=== PATIENT | female | born 1965 | race Caucasian/White ===

== ENCOUNTER 2021-02-24 13:14 | Emergency (ER) | payer MEDICAID ==
[2021-02-24] MEDS ORDERED: HYDROmorphone 0.5 MG/0.5 ML Syringe IM ONE ×2 (13:35→14:24)
--- NOTE | 2021-02-24 13:39 | EDM.PDOC ---
ED HPI GENERAL MEDICAL PROBLEM - General Chief Complaint: Upper Extremity Injury/Pain Stated Complaint: FALL/R HAND INJURY Time Seen by Provider: 02/24/21 13:31 Source of Information: Reports: Patient, RN Notes Reviewed History Limitations: Reports: No Limitations - History of Present Illness INITIAL COMMENTS - FREE TEXT/NARRATIVE: Patient is a 55-year-old female who presents to the ER for a right wrist/hand injury. Patient notes she fell down some stairs last night, and had resultant pain in her right hand/wrist. She has been using an Nilo wrap to the area, but has not tried any sort of pain medication prior to coming to the ER. When the Nilo wrap is taken off, there is some bruising/swelling to the hand/finger area. She points to her wrist and proximal hand as the source of pain. She thinks she could have bumped her head, but she did not lose any consciousness, and did not have any laceration she was aware of this there was no bleeding. She did not have a bloody nose, she did not notice any sort of fluid coming from her ears as well. She is denying any blurred vision or double vision, or any sort of headaches or any other neurological deficits. Patient's hand is pink, warm, and she can feel all touch without difficulty. She is however having trouble moving her fingers much at all due to the pain. Right Wrist Pain Score (Numeric/FACES): 4 - Related Data Allergies Allergy/AdvReac Type Severity Reaction Status Date / Time No Known Allergies Allergy Verified 02/24/21 13:29 Home Meds: Home Meds Acetaminophen/HYDROcodone [[place] 325-5 MG] 1 tab PO Q6H PRN #15 tablet 02/24/21 [Rx] Past Medical History - Past Surgical History Musculoskeletal Surgical History: Reports: Other (See Below) Other Musculoskeletal Surgeries/Procedures:: leg surgery Social & Family History - Tobacco Use Tobacco Use Status *Q: Never Tobacco User Second Hand Smoke Exposure: No - Recreational Drug Use Recreational Drug Use: No Review of Systems - Review of Systems Review Of Systems: Comprehensive ROS is negative, except as noted in HPI. ED EXAM, GENERAL - Physical Exam Exam: See Below Exam Limited By: No Limitations General Appearance: Alert, WD/WN, No Apparent Distress Respiratory/Chest: No Respiratory Distress, Lungs Clear, Normal Breath Sounds, No Accessory Muscle Use, Chest Non-Tender Cardiovascular: Normal Peripheral Pulses, Regular Rate, Rhythm, No Edema Peripheral Pulses: 2+: Radial (L), Radial (R) Extremities: Normal Capillary Refill, Limited Range of Motion (of right wrist/hand d/t swelling/pain) Neurological: Alert, Oriented, Normal Cognition, No Motor/Sensory Deficits Psychiatric: Normal Affect, Normal Mood Skin Exam: Warm, Dry, Intact, No Rash, Ecchymosis (slight to posterior right hand, along with mild swelling into fingers.) ED TRAUMA EXTREMITY PROCEDURES - Splinting Right Upper Extremity Splint Site: right wrist Pre-Procedure NV Status: Normal Post-Procedure NV Status: Normal Splint Material: Fiberglass Splint Design: Gutter (ulnar gutter short arm) Applied & Form Fitted By: Provider, Nurse Provider Post-Splint Application NV Check: NV Status Normal, Good Position Complications: No Course - Vital Signs Last Recorded V/S: Last Vital Signs Temp 97.5 F 02/24/21 13:25 Pulse 95 02/24/21 13:25 Resp 16 02/24/21 13:25 BP 119/75 02/24/21 13:25 Pulse Ox 97 02/24/21 13:25 - Orders/Labs/Meds Orders: Active Orders 24 hr Category Date Time Status HYDROmorphone [Dilaudid] Med 02/24/21 14:24 Once 0.5 mg IM ONETIME ONE Meds: Medications Discontinued Medications Generic Name Dose Route Start Last Admin Trade Name Freq PRN Reason Stop Dose Admin Hydromorphone HCl 0.5 mg 02/24/21 13:35 02/24/21 13:56 Hydromorphone 0.5 Mg/0.5 Ml Syringe IM 02/24/21 13:36 0.5 mg ONETIME ONE Administration - Re-Assessments/Exams Free Text/Narrative Re-Assessment/Exam: 02/24/21 13:38 Patient presents to the ER for her right hand/wrist injury, we will go ahead and get x-rays of her wrist and hand, we will give her 0.5 mg Dilaudid for ongoing management. 02/24/21 14:06 X-rays of the patient's wrist do demonstrate an impacted fracture of the distal radius. There is very minimal angulation, and no displacement. We will go ahead and splint the patient's wrist, and have her follow-up with orthopedics this week for ongoing cast management. Departure - Departure Time of Disposition: 14:08 Disposition: Home, Self-Care 01 Condition: Good Clinical Impression: Distal radius fracture, right Qualifiers: Encounter type: initial encounter Fracture type: closed Fracture morphology: other fracture Qualified Code(s): S52.591A - Other fractures of lower end of right radius, initial encounter for closed fracture - Discharge Information *PRESCRIPTION DRUG MONITORING PROGRAM REVIEWED*: Yes *COPY OF PRESCRIPTION DRUG MONITORING REPORT IN PATIENT DANNY: No Prescriptions: Acetaminophen/HYDROcodone [[place] 325-5 MG] 1 tab PO Q6H PRN #15 tablet PRN Reason: Pain Instructions: Cast or Splint Care, Adult, [id number], Wrist Fracture Treated With Immobilization, [id number] Referrals: [facility] TECHNICIAN [Primary Care Provider] - Forms: ED Department Discharge, ED Return to Work/School Form Additional Instructions: You have been evaluated in the ED for your right wrist injury. Your x-ray demonstrated an impacted fracture of your right distal radius. You were splinted at this ER visit, to allow some time for the swelling to go down. Please keep the splint in place, until orthopedics can evaluate you Please use ice as tolerated to the affected area. You may elevate the affected area to provide further relief from swelling. You may take Tylenol 500 mg or ibuprofen 600mg q6 hrs for pain relief. Please do so until you have a tolerable level of pain with activity. Do not exceed 4000mg Tylenol, Do not exceed 3200mg ibuprofen in a 24 hour time period. You were given a prescription for a strong pain medication, hydrocodone/acetaminophen 5/325, please take 1 tab every 6 hours as needed for pain not relieved by Tylenol or ibuprofen alone. Please note this does contain Tylenol in it, so do not take more than 4000 mg in a 24-hour time span. These medications can be addictive, so please take as few as possible to achieve adequate pain control. These meds can also be quite constipating, recommend that you increase your oral fluid intake and take a stool softener like MiraLAX while taking these medications. Your prescription was electronically sent to [facility] pharmacy located near [facility], this pharmacy is only open from 12 to 4 PM on Sundays, you will need to go there during this timeframe to obtain this medication and take as prescribed. Please call Ortho for follow-up and further evaluation Dr. Salas is our orthopedic surgeon, his office number is [phone]. Please call and set up an appointment as soon as possible for further management. Please return to ED if your symptoms should change or worsen. Sepsis Event Note (ED) - Evaluation Sepsis Screening Result: No Definite Risk - Focused Exam Vital Signs: Vital Signs Temp Pulse Resp BP Pulse Ox 02/24/21 13:25 97.5 F 95 16 119/75 97 - My Orders Last 24 Hours: My Active Orders 02/24/21 14:24 HYDROmorphone [Dilaudid] 0.5 mg IM ONETIME ONE - Assessment/Plan Last 24 Hours: My Active Orders 02/24/21 14:24 HYDROmorphone [Dilaudid] 0.5 mg IM ONETIME ONE
--- NOTE | 2021-02-24 14:21 | CR ---
Right hand: 4 views of the right hand were obtained. Comparison: No prior hand exam is available. Diffuse soft tissue swelling is noted. Fracture is identified within the distal radius. Alignment is close to anatomic. Mild joint space narrowing is noted of the distal navicular bone. Fingers are held in flexion which slightly limits the exam. No additional fracture or other abnormality is appreciated. Impression: 1. Essentially nondisplaced distal right radial fracture. 2. Diffuse soft tissue swelling. Diagnostic code #3
== END 2021-02-24 15:24 | disposition home or self-care (01) ==
LOC: JD.ED 13:14
DX: S52.591A Other fractures of lower end of right radius, initial encounter for closed fracture (principal); W10.8XXA Fall (on) (from) other stairs and steps, initial encounter
CPT/HCPCS: 29125; 73130; 96372; 99283; J1170

== ENCOUNTER 2021-05-03 14:22 | Emergency (ER) | payer MEDICAID ==
[2021-05-03] MEDS ORDERED: Sodium Chloride 0.9% 10 ML Syringe FLUSH PRN (14:59)
[2021-05-03] MEDS ORDERED: Sodium Chloride 0.9% 1,000 ML IV ONE ×3 (15:00→17:30)
[2021-05-03] MEDS ORDERED: LORazepam 2 MG/ML SDV IVPUSH ONE (15:00)
[2021-05-03] MEDS ORDERED: Metoclopramide 10 MG/2 ML SDV IVPUSH ONE (15:00)
--- NOTE | 2021-05-03 15:08 | EDM.PDOCBH ---
ED HPI GENERAL MEDICAL PROBLEM - General Chief Complaint: Behavioral/Psych Stated Complaint: [facility] Time Seen by Provider: 05/03/21 14:27 Source of Information: Reports: Patient, Family (brother), RN Notes Reviewed History Limitations: Reports: Intoxication, Uncooperative (somewhat) - History of Present Illness INITIAL COMMENTS - FREE TEXT/NARRATIVE: Patient is a 55-year-old female who is brought in by the [place] ambulance service for her suicidal ideations. States that she has been in relationship with a gentleman in [place], and roughly 2 days ago, he told her that she should just kill herself. She notes that she is fairly dependent on him, would be homeless without him. She states that she was thinking about taking all of her pills, and ending her life. Patient is visibly intoxicated, and states that she is mentally unstable and needs help. She notes that she is not hearing voices or not seeing things that are not there. She feels like she is not worthy or good enough. Notes that family has issues with bipolar, and schizophrenia however she has only been diagnosed with depression. I was able to talk with the patient's son and she has been recently started on antidepression meds, and he was concerned because she has been drinking, with the combination of antidepression meds, and that she is never mentioned the thought of suicide to him in the past. Patient states she has been taking her medications as prescribed. Patient denies any other sick-like symptoms, fever/chills, cough/shortness of breath, nausea/vomiting/diarrhea. She has received her first dose of Covid vaccine as well. - Related Data Allergies Allergy/AdvReac Type Severity Reaction Status Date / Time No Known Allergies Allergy Verified 05/03/21 14:30 Home Meds: Home Meds Escitalopram [Lexapro] 10 mg PO DAILY 05/03/21 [History] Famotidine 20 mg PO DAILY 05/03/21 [History] LORazepam [Ativan] 0.5 mg PO BID PRN 05/03/21 [History] Levocetirizine Dihydrochloride [Allergy Relief] 5 mg PO DAILY 05/03/21 [History] Past Medical History Respiratory History: Reports: Asthma Gastrointestinal History: Reports: Other (See Below) Other Gastrointestinal History: ulcers [employer] History: Reports: Psychiatric History: Reports: Anxiety, Depression - Past Surgical History Musculoskeletal Surgical History: Reports: Other (See Below) Other Musculoskeletal Surgeries/Procedures:: leg surgery Social & Family History - Tobacco Use Tobacco Use Status *Q: Light Tobacco User Years of Tobacco use: 30 Packs/Tins Daily: 0.1 - Caffeine Use Caffeine Use: Reports: None - Alcohol Use Days Per Week of Alcohol Use: 5 Number of Drinks Per Day: 5 Total Drinks Per Week: 25 - Recreational Drug Use Recreational Drug Use: No ED ROS GENERAL - Review of Systems Review Of Systems: Comprehensive ROS is negative, except as noted in HPI. ED EXAM, BEHAVIORAL HEALTH - Physical Exam Exam: See Below Exam Limited By: No Limitations General Appearance: Alert, WD/WN, No Apparent Distress Respiratory/Chest: No Respiratory Distress, Lungs Clear, Normal Breath Sounds, No Accessory Muscle Use, Chest Non-Tender Cardiovascular: Normal Peripheral Pulses, Regular Rate, Rhythm, No Edema GI/Abdominal: Normal Bowel Sounds, Soft, Non-Tender, No Distention, No Mass Extremities: Normal Inspection, Normal Capillary Refill Neurological: Alert, Normal Mood/Affect, Normal Cognition, No Motor/Sensory Deficits Psychiatric: Depressed Mood, Tearful, Suicidal Plan (states that she would take all her pills), Suicidal Thoughts (wants to take all of her depression meds to end her life). No: Homicidal Thoughts, Visual Hallucinations Skin Exam: Warm, Dry, Intact, Normal color, No rash COURSE, BEHAVIORAL HEALTH COMP - Course Vital Signs: Last Vital Signs Temp 98.0 F 05/03/21 14:29 Pulse 60 05/03/21 14:29 Resp 20 05/03/21 14:29 BP 113/70 05/03/21 14:29 Pulse Ox 98 05/03/21 14:29 Orders, Labs, Meds: Active Orders 24 hr Category Date Time Status Peripheral IV Care [RC] . DIRECTED Care 05/03/21 14:59 Active Suicide Precautions [RC] ASDIRECTED Care 05/03/21 15:19 Active Sodium Chloride 0.9% [Normal Saline] 1,000 ml Med 05/03/21 16:26 Ordered IV ONETIME Sodium Chloride 0.9% [Saline Flush] Med 05/03/21 14:59 Active 10 ml FLUSH ASDIRECTED PRN Peripheral IV Insertion Adult [OM.PC] Routine Oth 05/03/21 14:59 Ordered Medication Orders Sodium Chloride (Normal Saline) 1,000 mls @ 999 mls/hr IV ONETIME ONE Stop: 05/03/21 17:26 Sodium Chloride (Sodium Chloride 0.9% 10 Ml Syringe) 10 ml FLUSH ASDIRECTED PRN PRN Reason: Keep Vein Open Last Admin: 05/03/21 15:18 Dose: 10 ml Documented by: EDITH Laboratory Tests 05/03/21 05/03/21 05/03/21 Range/Units 15:10 15:10 15:10 WBC 7.94 (3.98-10.04) K/mm3 RBC 4.73 (3.98-5.22) M/mm3 Hgb 15.1 (11.2-15.7) gm/dl Hct 45.7 H (34.1-44.9) % MCV 96.6 H (79.4-94.8) fl MCH 31.9 (25.6-32.2) pg MCHC 33.0 (32.2-35.5) g/dl RDW Std Deviation 46.7 H (36.4-46.3) fL Plt Count 341 (182-369) K/mm3 MPV 7.5 L (9.4-12.3) fl Neutrophils % (Manual) 67 H (40-60) % Band Neutrophils % 1 (0-10) % Lymphocytes % (Manual) 22 (20-40) % Atypical Lymphs % 2 % Monocytes % (Manual) 6 (2-10) % Eosinophils % (Manual) 0 L (0.7-5.8) % Basophils % (Manual) 2 H (0.1-1.2) Platelet Estimate Adequate RBC Morph Comment Normal Sodium 146 H (136-145) mEq/L Potassium 3.9 (3.5-5.1) mEq/L Chloride 107 (98-107) mEq/L Carbon Dioxide 27 (21-32) mEq/L Anion Gap 15.9 H (5-15) BUN 8 (7-18) mg/dL Creatinine 0.7 (0.55-1.02) mg/dL Est Cr Clr Drug Dosing 79.79 mL/min Estimated GFR (MDRD) > 60 (>60) mL/min BUN/Creatinine Ratio 11.4 L (14-18) Glucose 86 (70-99) mg/dL Calcium 9.0 (8.5-10.1) mg/dL Total Bilirubin 0.3 (0.2-1.0) mg/dL AST 36 (15-37) U/L ALT 39 (14-59) U/L Alkaline Phosphatase 77 (46-116) U/L Total Protein 8.4 H (6.4-8.2) g/dl Albumin 4.0 (3.4-5.0) g/dl Globulin 4.4 gm/dL Albumin/Globulin Ratio 0.9 L (1-2) TSH 3rd Generation 0.410 (0.358-3.74) uIU/mL Salicylates 1.8 L (2.8-20) mg/dL Urine Opiates Screen (AYXPSU=492) Ur Buprenorphine Scrn (CUTOFF=10) Ur Oxycodone Screen (SEE8HV=437) Urine Methadone Screen (EHEVOE=657) Ur Propoxyphene Screen (SDBWNZ=242) Acetaminophen 0 L (10-30) ug/mL Ur Barbiturates Screen (OMSIGW=359) Ur Tricyclics Screen (PRLYJZ=645) Ur Phencyclidine Scrn (CUTOFF=25) Ur Amphetamine Screen (ZKFFDZ=058) U Methamphetamines Scrn (MMVMNW=063) U Benzodiazepines Scrn (QWJLIK=147) U Cocaine Metab Screen (HYGSKT=719) U Marijuana (THC) Screen (CUTOFF=50) Ethyl Alcohol 0.36 (0.00) gm% SARS-CoV-2 RNA (FREDRICK) (NEGATIVE) 05/03/21 05/03/21 Range/Units 15:15 15:22 WBC (3.98-10.04) K/mm3 RBC (3.98-5.22) M/mm3 Hgb (11.2-15.7) gm/dl Hct (34.1-44.9) % MCV (79.4-94.8) fl MCH (25.6-32.2) pg MCHC (32.2-35.5) g/dl RDW Std Deviation (36.4-46.3) fL Plt Count (182-369) K/mm3 MPV (9.4-12.3) fl Neutrophils % (Manual) (40-60) % Band Neutrophils % (0-10) % Lymphocytes % (Manual) (20-40) % Atypical Lymphs % % Monocytes % (Manual) (2-10) % Eosinophils % (Manual) (0.7-5.8) % Basophils % (Manual) (0.1-1.2) Platelet Estimate RBC Morph Comment Sodium (136-145) mEq/L Potassium (3.5-5.1) mEq/L Chloride (98-107) mEq/L Carbon Dioxide (21-32) mEq/L Anion Gap (5-15) BUN (7-18) mg/dL Creatinine (0.55-1.02) mg/dL Est Cr Clr Drug Dosing mL/min Estimated GFR (MDRD) (>60) mL/min BUN/Creatinine Ratio (14-18) Glucose (70-99) mg/dL Calcium (8.5-10.1) mg/dL Total Bilirubin (0.2-1.0) mg/dL AST (15-37) U/L ALT (14-59) U/L Alkaline Phosphatase (46-116) U/L Total Protein (6.4-8.2) g/dl Albumin (3.4-5.0) g/dl Globulin gm/dL Albumin/Globulin Ratio (1-2) TSH 3rd Generation (0.358-3.74) uIU/mL Salicylates (2.8-20) mg/dL Urine Opiates Screen Negative (BTHAJO=125) Ur Buprenorphine Scrn Negative (CUTOFF=10) Ur Oxycodone Screen Negative (RZX0OW=118) Urine Methadone Screen Negative (YWPANE=920) Ur Propoxyphene Screen Negative (CPEFYC=153) Acetaminophen (10-30) ug/mL Ur Barbiturates Screen Negative (XRFSXI=506) Ur Tricyclics Screen Negative (SMKBSD=854) Ur Phencyclidine Scrn Negative (CUTOFF=25) Ur Amphetamine Screen Negative (RKVVTP=644) U Methamphetamines Scrn Negative (XNOOQY=964) U Benzodiazepines Scrn Negative (PLFHQA=158) U Cocaine Metab Screen Negative (FUVKFX=652) U Marijuana (THC) Screen Negative (CUTOFF=50) Ethyl Alcohol (0.00) gm% SARS-CoV-2 RNA (FREDRICK) Negative (NEGATIVE) Medications Generic Name Dose Route Start Last Admin Trade Name Freq PRN Reason Stop Dose Admin Sodium Chloride 1,000 mls @ 999 mls/hr 05/03/21 16:26 Normal Saline IV 05/03/21 17:26 ONETIME ONE Sodium Chloride 10 ml 05/03/21 14:59 05/03/21 15:18 Sodium Chloride 0.9% 10 Ml Syringe FLUSH 10 ml ASDIRECTED PRN Administration Keep Vein Open Discontinued Medications Generic Name Dose Route Start Last Admin Trade Name Chelo PRN Reason Stop Dose Admin Sodium Chloride 1,000 mls @ 999 mls/hr 05/03/21 15:00 05/03/21 15:16 Normal Saline IV 05/03/21 16:00 999 mls/hr ONETIME ONE Administration Lorazepam 1 mg 05/03/21 15:00 05/03/21 15:15 Lorazepam 2 Mg/Ml Sdv IVPUSH 05/03/21 15:01 1 mg ONETIME ONE Administration Metoclopramide HCl 10 mg 05/03/21 15:00 05/03/21 15:17 Metoclopramide 10 Mg/2 Ml Sdv IVPUSH 05/03/21 15:01 10 mg ONETIME ONE Administration Discharge vs Psych Eval/Treatment:: 05/03/21 15:08 Patient is a 55-year-old female who presents to the ER with suicidal ideations. For today's purposes it does appear if she has been drinking alcohol and is acutely intoxicated, but her son notes that she has never threatened her life to him before, and he notes that she does normally drink alcohol. We will go ahead and get basic labs, along with give her some IV fluids, some Ativan and Reglan to help her sleep the alcohol off, and then figure out disposition for her. 05/03/21 16:19 Labs have resulted, CBC is essentially unremarkable, metabolic panel again essentially unremarkable, drug screen is negative for any substances. Salicylat e level of 1.8, acetaminophen level is 0, blood alcohol is elevated at 0.36, the fluid should help bring this down quite a bit, patient is resting in her room at this time. I will try to call around once the COVID screen has come back for placement. 05/03/21 16:39 Covid screen is negative. I did call [facility] in [place], they do have a bed available and I was able to talk with Dr. Sanchez, he would like the patient to get more IV fluids, due to her alcohol level, but will accept the patient for later on tonight. He would like the patient to be there at around 10 PM or so. Departure - Departure Time of Disposition: 16:40 Disposition: DC/Tfer to Psych Hosp/Unit 65 Condition: Fair Clinical Impression: Suicidal ideation - Discharge Information *PRESCRIPTION DRUG MONITORING PROGRAM REVIEWED*: No *COPY OF PRESCRIPTION DRUG MONITORING REPORT IN PATIENT DANNY: No Forms: ED Department Discharge Sepsis Event Note (ED) - Evaluation Sepsis Screening Result: No Definite Risk - Focused Exam Vital Signs: Vital Signs Temp Pulse Resp BP Pulse Ox 05/03/21 14:29 98.0 F 60 20 113/70 98 - My Orders Last 24 Hours: My Active Orders 05/03/21 14:59 Peripheral IV Care [RC] . DIRECTED Sodium Chloride 0.9% [Saline Flush] 10 ml FLUSH ASDIRECTED PRN Peripheral IV Insertion Adult [OM.PC] Routine 05/03/21 15:19 Suicide Precautions [RC] ASDIRECTED 05/03/21 16:26 Sodium Chloride 0.9% [Normal Saline] 1,000 ml IV ONETIME - Assessment/Plan Last 24 Hours: My Active Orders 05/03/21 14:59 Peripheral IV Care [RC] . DIRECTED Sodium Chloride 0.9% [Saline Flush] 10 ml FLUSH ASDIRECTED PRN Peripheral IV Insertion Adult [OM.PC] Routine 05/03/21 15:19 Suicide Precautions [RC] ASDIRECTED 05/03/21 16:26 Sodium Chloride 0.9% [Normal Saline] 1,000 ml IV ONETIME
[2021-05-03 16:08] LABS: ACETAMINOPHEN 0 ug/mL (10-30)
== END 2021-05-03 21:11 ==
LOC: JD.ED 14:22
DX: F32.9 Major depressive disorder, single episode, unspecified (principal); Z20.822 Contact with and (suspected) exposure to COVID-19; Z72.0 Tobacco use; Z79.899 Other long term (current) drug therapy
CPT/HCPCS: 36415; 80053; 80143; 80179; 80306; 80307; 84443; 85007; 85027; 87635; 96374; 96375; 99285; J2060; J2765; J7030; 99284; U0002

== ENCOUNTER 2021-06-01 15:28 | Emergency (ER) | payer MEDICAID ==
--- NOTE | 2021-06-01 16:28 | EDM.PDOCBH ---
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 The patient admits to drinking daily usually about a pint of liquor. She last drank last night. She admits she has a problem and would like to get some help. The last time she was sober was a few months ago when she went to visit her mother. She has no homicidal thoughts. She feels life is not worth living but has no plan. She has no fever, chills, cough, chest pain, shortness of breath, abdominal pain, nausea or vomiting. Onset: Gradual Duration: Day(s): Severity: Moderate Improves with: Reports: None Worsens with: Reports: None Associated Symptoms: Reports: No Other Symptoms - Related Data Allergies Allergy/AdvReac Type Severity Reaction Status Date / Time No Known Allergies Allergy Verified 06/01/21 15:57 Home Meds: Home Meds Famotidine [Pepcid AC] 20 mg PO DAILY 06/01/21 [History] Ibuprofen 800 mg PO Q6H PRN 06/01/21 [History] LORazepam [Ativan] 0.5 mg PO Q6H PRN 06/01/21 [History] LORazepam [Ativan] 1 mg PO DAILY #18 tablet 06/01/21 [Rx] Levocetirizine Dihydrochloride [Xyzal] 5 mg PO DAILY 06/01/21 [History] Ondansetron [Zofran ODT] 4 mg PO Q6H PRN #20 tab.dis 06/01/21 [Rx] Sertraline HCl [Zoloft] 100 mg PO DAILY 06/01/21 [History] Past Medical History Respiratory History: Reports: Asthma Gastrointestinal History: Reports: Other (See Below) Other Gastrointestinal History: ulcers 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: Psychiatric History: Reports: Anxiety, Depression - Past Surgical History Musculoskeletal Surgical History: Reports: Other (See Below) Other Musculoskeletal Surgeries/Procedures:: leg surgery Social & Family History - Tobacco Use Tobacco Use Status *Q: Never Tobacco User - Caffeine Use Caffeine Use: Reports: None ED ROS GENERAL - Review of Systems Review Of Systems: See Below Constitutional: Reports: No Symptoms HEENT: Reports: No Symptoms Respiratory: Reports: No Symptoms Cardiovascular: Reports: No Symptoms Endocrine: Reports: No Symptoms GI/Abdominal: Reports: No Symptoms : Reports: No Symptoms Musculoskeletal: Reports: No Symptoms ED EXAM, BEHAVIORAL HEALTH - Physical Exam Exam: See Below Exam Limited By: No Limitations General Appearance: Alert, No Apparent Distress Ears: Normal External Exam Nose: Normal Inspection Head: Atraumatic, Normocephalic Neck: Normal Inspection Respiratory/Chest: No Respiratory Distress, Lungs Clear, Normal Breath Sounds Cardiovascular: Regular Rate, Rhythm, No Edema, No Murmur GI/Abdominal: Soft, Non-Tender, No Organomegaly, No Mass Back Exam: Normal Inspection Extremities: Normal Inspection COURSE, BEHAVIORAL HEALTH COMP - Course Vital Signs: Last Vital Signs Temp 97.9 F 06/01/21 15:54 Pulse 97 06/01/21 15:54 Resp 18 06/01/21 15:54 BP 144/100 H 06/01/21 15:54 Pulse Ox 97 06/01/21 15:54 Orders, Labs, Meds: Active Orders 24 hr Category Date Time Status Cardiac Monitoring [RC] . DIRECTED Care 06/01/21 16:08 Active Laboratory Tests 06/01/21 06/01/21 06/01/21 Range/Units 16:16 16:16 17:10 WBC 7.00 (3.98-10.04) K/mm3 RBC 4.68 (3.98-5.22) M/mm3 Hgb 14.6 (11.2-15.7) gm/dl Hct 43.6 (34.1-44.9) % MCV 93.2 D (79.4-94.8) fl MCH 31.2 (25.6-32.2) pg MCHC 33.5 (32.2-35.5) g/dl RDW Std Deviation 43.6 (36.4-46.3) fL Plt Count 258 D (182-369) K/mm3 MPV 7.6 L (9.4-12.3) fl Neut % (Auto) 75.7 H (34.0-71.1) % Lymph % (Auto) 16.1 L (19.3-51.7) % [place] % (Auto) 7.0 (4.7-12.5) % Eos % (Auto) 0.4 L (0.7-5.8) Baso % (Auto) 0.7 (0.1-1.2) % Neut # (Auto) 5.29 (1.56-6.13) K/mm3 Lymph # (Auto) 1.13 L (1.18-3.74) K/mm3 [place] # (Auto) 0.49 H (0.24-0.36) K/mm3 Eos # (Auto) 0.03 L (0.04-0.36) K/mm3 Baso # (Auto) 0.05 (0.01-0.08) K/mm3 Sodium 142 (136-145) mEq/L Potassium 3.5 (3.5-5.1) mEq/L Chloride 103 (98-107) mEq/L Carbon Dioxide 22 (21-32) mEq/L Anion Gap 20.5 H (5-15) BUN 11 (7-18) mg/dL Creatinine 0.8 (0.55-1.02) mg/dL Est Cr Clr Drug Dosing TNP Estimated GFR (MDRD) > 60 (>60) mL/min BUN/Creatinine Ratio 13.8 L (14-18) Glucose 99 (70-99) mg/dL Calcium 8.7 (8.5-10.1) mg/dL Total Bilirubin 0.5 (0.2-1.0) mg/dL AST 35 (15-37) U/L ALT 25 (14-59) U/L Alkaline Phosphatase 76 (46-116) U/L Total Protein 8.3 H (6.4-8.2) g/dl Albumin 3.9 (3.4-5.0) g/dl Globulin 4.4 gm/dL Albumin/Globulin Ratio 0.9 L (1-2) TSH 3rd Generation 1.241 (0.358-3.74) uIU/mL Urine Opiates Screen Negative (BHKFQL=962) Ur Buprenorphine Scrn Negative (CUTOFF=10) Ur Oxycodone Screen Negative (XJK5LY=915) Urine Methadone Screen Negative (UKSJJW=700) Ur Propoxyphene Screen Negative (WKJQVL=936) Ur Barbiturates Screen Negative (YZNUYJ=760) Ur Tricyclics Screen Negative (PIOTCR=849) Ur Phencyclidine Scrn Negative (CUTOFF=25) Ur Amphetamine Screen Negative (NIBDGC=196) U Methamphetamines Scrn Negative (JMBHAC=659) U Benzodiazepines Scrn Presumptive positive H (BCPYLQ=750) U Cocaine Metab Screen Negative (WNRHQJ=925) U Marijuana (THC) Screen Negative (CUTOFF=50) Ethyl Alcohol 0.02 (0.00) gm% Re-Assessment/Re-Exam: I ordered labs and a urine drug screen. Her CBC looks good. Her anion gap was elevated at 20.5. Her TSH is normal. Her urine drug screen was positive for benzos. Her ETOH is 0.02. I have ordered ativan 1mg by mouth and some zofran 4mg PO. I will give her prescriptions for both and write some orders for the [facility]. Departure - Departure Time of Disposition: 18:05 Disposition: Home, Self-Care 01 Condition: Good Clinical Impression: Alcohol abuse Alcohol withdrawal Qualifiers: Complication of substance-induced condition: uncomplicated Qualified Code(s): F10.230 - Alcohol dependence with withdrawal, uncomplicated - Discharge Information *PRESCRIPTION DRUG MONITORING PROGRAM REVIEWED*: Not Applicable *COPY OF PRESCRIPTION DRUG MONITORING REPORT IN PATIENT DANNY: Not Applicable Prescriptions: LORazepam [Ativan] 1 mg PO DAILY #18 tablet Ondansetron [Zofran ODT] 4 mg PO Q6H PRN #20 tab.dis PRN Reason: Nausea\vomiting 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 Take zofran every 6 hours. Go directly to the [facility]. Please return if you are worse. Sepsis Event Note (ED) - Evaluation Sepsis Screening Result: No Definite Risk - Focused Exam Vital Signs: Vital Signs Temp Pulse Resp BP Pulse Ox 06/01/21 15:54 97.9 F 97 18 144/100 H 97 - My Orders Last 24 Hours: My Active Orders 06/01/21 16:08 Cardiac Monitoring [RC] . DIRECTED - Assessment/Plan Last 24 Hours: My Active Orders 06/01/21 16:08 Cardiac Monitoring [RC] . DIRECTED
[2021-06-01] MEDS ORDERED: LORazepam 1 MG Tab PO ONE (17:59)
[2021-06-01] MEDS ORDERED: Ondansetron 4 MG Tab.DIS PO ONE (18:00)
== END 2021-06-01 18:15 | disposition home or self-care (01) ==
LOC: JD.ED 15:28
DX: F10.230 Alcohol dependence with withdrawal, uncomplicated (principal); Y90.5 Blood alcohol level of 100-119 mg/100 ml
CPT/HCPCS: 36415; 80053; 80306; 80307; 84443; 85025; 99284; A9270; 99283

== ENCOUNTER 2021-07-08 06:06 | Day surgery (SDC) | payer MEDICAID ==
[~2021-07-08 06:06] MED LIST: Lactated Ringers 1,000 ML IV SCH; Lidocaine 1%/Sod Bicarbonate in NS 8.4% 1 ML Syringe IDERM PRN; Sodium Chloride 0.9% 10 ML Syringe FLUSH PRN
[2021-07-08] MEDS ORDERED: Bupivacaine 0.25% 10 ML SDV ONE (06:29)
[2021-07-08] MEDS ORDERED: Lidocaine 1% 30 ML SDV ONE (06:29)
--- NOTE | 2021-07-08 06:53 | PCM.PREANE ---
Preanesthetic Assessment - Procedure Proposed Procedure: right carpal tunnel release - Anesthesia/Transfusion/Family Hx Anesthesia History: Prior Anesthesia Without Reaction Family History of Anesthesia Reaction: No Transfusion History: No Prior Transfusion(s) - Review of Systems General: No Symptoms Pulmonary: No Symptoms Cardiovascular: No Symptoms Gastrointestinal: No Symptoms Neurological: No Symptoms Other: Reports: Depression, Anxiety - Physical Assessment NPO Status Date: 07/07/21 NPO Status Time: 23:00 Vital Signs: 110/69 62 99% 16 97.0 Height: 5 ft 4 in Weight: 75 kg ASA Class: 2 Mental Status: Alert & Oriented x3 Airway Class: Mallampati = 1 Dentition: Reports: Normal Dentition Thyro-Mental Finger Breadths: 3 Mouth Opening Finger Breadths: 3 ROM/Head Extension: Full Lungs: Clear to Auscultation, Normal Respiratory Effort Cardiovascular: Regular Rate, Regular Rhythm - Allergies Allergies/Adverse Reactions: Allergies Allergy/AdvReac Type Severity Reaction Status Date / Time No Known Allergies Allergy Verified 07/06/21 09:54 - Blood Blood Available: No - Acknowledgements Anesthesia Type Planned: MAC Pt an Appropriate Candidate for the Planned Anesthesia: Yes Alternatives and Risks of Anesthesia Discussed w Pt/Guardian: Yes Pt/Guardian Understands and Agrees with Anesthesia Plan: Yes PreAnesthesia Questionnaire HEENT History: Reports: Allergic Rhinitis, Impaired Vision, Other (See Below) Other HEENT History: wears glasses Respiratory History: Reports: Asthma (from allergies- used inhaler last about 6 months ago) Gastrointestinal History: Reports: Irritable Bowel Syndrome, Other (See Below) Other Gastrointestinal History: ulcers, abdominal pain, elevated LFTs Genitourinary History: Reports: STD, Other (See Below) Other Genitourinary History: hematuria 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: , 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 (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) Other OB/BYN History: post menopausal Musculoskeletal History: Neurological History: Reports: None Psychiatric History: Reports: Addiction, Anxiety, Depression Endocrine/Metabolic History: Reports: None Hematologic History: Reports: Anemia, Idiopathic Thrombocytopenia Immunologic History: Reports: None Oncologic (Cancer) History: Reports: None Dermatologic History: Reports: None - Infectious Disease History Infectious Disease History: Reports: None - Past Surgical History Head Surgeries/Procedures: Reports: None Cardiovascular Surgical History: Reports: None Respiratory Surgical History: Reports: None GI Surgical History: Reports: None Female Surgical History: Reports: Tubal Ligation Endocrine Surgical History: Reports: None Neurological Surgical History: Reports: None Musculoskeletal Surgical History: Reports: Other (See Below) Other Musculoskeletal Surgeries/Procedures:: leg surgery Oncologic Surgical History: Reports: None Dermatological Surgical History: Reports: None - SUBSTANCE USE Tobacco Use Status *Q: Current Every Day Tobacco User Tobacco Use Within Last Twelve Months: Cigarettes Second Hand Smoke Exposure: Yes Days Per Week of Alcohol Use: 0 Recreational Drug Use History: No - HOME MEDS Home Medications: Home Meds Famotidine [Pepcid AC] 20 mg PO BID 06/01/21 [History] LORazepam [Ativan] 0.5 mg PO BID PRN 06/01/21 [History] Levocetirizine Dihydrochloride [Xyzal] 5 mg PO DAILY 06/01/21 [History] Sertraline HCl [Zoloft] 100 mg PO DAILY 06/01/21 [History] Albuterol [Proventil HFA] 1 - 2 puff INH QID PRN 07/06/21 [History] Fluticasone Propionate [Flonase] 1 dose NASBOTH DAILY 07/06/21 [History] - CURRENT (IN HOUSE) MEDS Current Meds: Current Medications Lactated Ringer's (Ringers, Lactated) 1,000 mls @ 125 mls/hr IV ASDIRECTED WATSON Stop: 07/08/21 23:00 Lidocaine/Sodium Bicarbonate (Lidocaine 1%/Sod Bicarbonate In Ns 8.4% 1 Ml Syringe) 0.25 ml IDERM ONETIME PRN PRN Reason: Prior to IV Start Stop: 07/08/21 18:00 Sodium Chloride (Sodium Chloride 0.9% 10 Ml Syringe) 10 ml FLUSH ASDIRECTED PRN PRN Reason: Keep Vein Open Stop: 07/08/21 18:00 Discontinued Medications Bupivacaine HCl (Bupivacaine 0.25% 10 Ml Sdv) Confirm Administered Dose 10 ml .ROUTE .STK-MED ONE Stop: 07/08/21 06:30 Lactated Ringer's (Ringers, Lactated) 1,000 mls @ 125 mls/hr IV ASDIRECTED WATSON Stop: 06/20/21 23:00 Lidocaine HCl (Lidocaine 1% 30 Ml Sdv) Confirm Administered Dose 30 ml .ROUTE .STK-MED ONE Stop: 07/08/21 06:30 Lidocaine/Sodium Bicarbonate (Lidocaine 1%/Sod Bicarbonate In Ns 8.4% 1 Ml Syringe) 0.25 ml IDERM ONETIME PRN PRN Reason: Prior to IV Start Stop: 06/20/21 18:00 Sodium Chloride (Sodium Chloride 0.9% 10 Ml Syringe) 10 ml FLUSH ASDIRECTED PRN PRN Reason: Keep Vein Open Stop: 06/20/21 18:00
[2021-07-08] MEDS ORDERED: Propofol 200 MG/20 ML SDV ONE (06:55)
[2021-07-08] MEDS ORDERED: Lidocaine 1% 4 ML ONE (06:55)
[2021-07-08] MEDS ORDERED: fentaNYL 100 MCG/2 ML SDV ONE (06:55)
[2021-07-08] MEDS ORDERED: Midazolam 1 MG/ML 2 ML SDV ONE (06:56)
[2021-07-08] MEDS ORDERED: Lidocaine 1%/Sod Bicarbonate in NS 8.4% 1 ML Syringe IDERM PRN (07:00)
[2021-07-08] MEDS ORDERED: Sodium Chloride 0.9% 10 ML Syringe FLUSH PRN (07:00)
[2021-07-08] MEDS ORDERED: Lactated Ringers 1,000 ML IV SCH (07:00)
[2021-07-08] MEDS ORDERED: Ketorolac 30 MG/ML SDV ONE (07:34)
--- NOTE | 2021-07-08 07:42 | PCM48HPAN ---
Post Anesthesia Note - EVALUATION WITHIN 48HRS OF ANESTHETIC Vital Signs in Normal Range: Yes Patient Participated in Evaluation: Yes Respiratory Function Stable: Yes Airway Patent: Yes Cardiovascular Function Stable: Yes Hydration Status Stable: Yes Pain Control Satisfactory: Yes Nausea and Vomiting Control Satisfactory: Yes Mental Status Recovered: Yes Vital Signs: 0736 96% 63 12 98.4
--- NOTE | 2021-07-23 07:03 | PCM.OPNOTE ---
- General Post-Op/Procedure Note Date of Surgery/Procedure: 07/08/21 Operative Procedure(s): right carpal tunnel release Pre Op Diagnosis: right median nerve compression neuropathy Post-Op Diagnosis: Same Anesthesia Technique: Local, MAC Primary Surgeon: Luis Salas Anesthesia Provider: Danny Kwan Accountant Helper: Tessa Mason EBL in mLs: 5 Complications: None Condition: Good
--- NOTE | 2021-07-23 10:36 | OR ---
DATE OF OPERATION: 07/08/2021 SURGEON: Luis Salas MD OPERATION PERFORMED: Right carpal tunnel release. PREOPERATIVE DIAGNOSIS: Right median nerve compression neuropathy. POSTOPERATIVE DIAGNOSIS: Right median nerve compression neuropathy. ANESTHESIA: Local MAC. ANESTHESIA PROVIDER: Danny Kwan CRNA PROFESSOR OF FAMILY MEDICINE: Tessa Mason PA-C ESTIMATED BLOOD LOSS: Less than 5 mL. COMPLICATIONS: None. CONDITION: Stable. DESCRIPTION OF PROCEDURE: The patient was identified in the preop holding area. Proper site was marked and identified by the surgeon. The patient was taken back to the operating theater where after adequate anesthesia, the patient's right upper extremity was sterilely prepped and draped in the usual sterile fashion. OR time-out was performed. The patient did not receive antibiotics and it is not indicated for soft tissue hand procedure. At this time, the right upper extremity was exsanguinated and an Esmarch was used as a tourniquet on the forearm. At this time, using 1% lidocaine without epinephrine and 0.25% Marcaine without epinephrine, the palmar cutaneous branch of the median nerve was anesthetized and then the incisional site was anesthetized using Garcia cardinal line and ulnar border of the fourth digit as reference. Once this had set up, an incision was made. Blunt dissection was taken down to the palmar cutaneous fascia. Palmar cutaneous fascia was incised with a [place] blade. At this time, the transverse carpal ligament was identified. A small rent was made in the transverse carpal ligament with a [place] blade under direct visualization. Resection of the transverse carpal ligament was done distally using tenotomy scissors making sure to stop short of the palmar arch. At this time, attention was turned proximally after it was found to be adequately released. Using the tenotomy scissors keeping the tips ulnar to protect the palmar cutaneous branch of the median nerve, the superficial forearm fascia as well as the transverse carpal ligament were resected proximally. It was found to be adequate release both proximally and distally. At this time, adequate saline was irrigated through the wound. 4-0 nylon sutures were used closure of the skin. The patient was placed in a sterile soft dressing and sent to PACU in stable condition. MMODAL /[id number]
== END 2021-07-08 08:36 | disposition home or self-care (01) ==
LOC: JD.SDS 06:06
PROVIDERS: ATTEND Orthopaedic Surgery
DX: G56.01 Carpal tunnel syndrome, right upper limb (principal); J45.909 Unspecified asthma, uncomplicated; F41.9 Anxiety disorder, unspecified; Z79.899 Other long term (current) drug therapy; Z87.891 Personal history of nicotine dependence
CPT/HCPCS: 64721; J1885; J2250; J2704; J3010; J3490; J7120; 01810

== ENCOUNTER 2021-08-20 02:40 | Emergency (ER) | payer MEDICAID ==
[2021-08-20] MEDS ORDERED: Sodium Chloride 0.9% 1,000 ML IV ONE (02:59)
[2021-08-20] MEDS ORDERED: Naloxone 2 MG/2 ML Syringe IVPUSH STA (03:07)
--- NOTE | 2021-08-20 03:16 | EDM.PDOCBH ---
ED HPI GENERAL MEDICAL PROBLEM - General Chief Complaint: Behavioral/Psych Stated Complaint: [facility] Time Seen by Provider: 08/20/21 02:48 Source of Information: Reports: RN History Limitations: Reports: Altered Mental Status (Patient lethargic) - History of Present Illness INITIAL COMMENTS - FREE TEXT/NARRATIVE: Ms. Payan was brought to the ED by EMS after she texted a friend at 00:41 that she had taken enough pills to kill herself. A bag of the patient's pills, brought by EMS, include clonidine 0.1 mg, escitalopram 10 mg, cetirizine 5 mg, naltrexone 50 mg, hydroxyzine 50 mg, acetaminophen 325 mg, and an albuterol MDI. The clonidine, escitalopram, and cetirizine bottles are empty, however, all of them are prescriptions that were filled at least 2 months ago, so it is not clear if she took an overdose of these medications, or some other medication(s). The patient has a history of alcoholism, so it is presumed that she drank some alcohol, as well. EMS gave the patient 1 L of IV fluid en route to the ED. At triage, the patient's initial BP was depressed at 68/46 with bradycardia of 53 bpm. She is afebrile, saturating 88% on 2 L of oxygen per nasal cannula, 100% on 5 L of oxygen per nasal cannula. She is sleeping, sometimes sonorously, but wakes if stimulated. Due to the patient's altered mental status, her PMHx/PSHx/SocHx are obtained from prior medical records, and her recent ROS is not obtainable. The patient's PCP is Ely Dale NP. - Related Data Allergies Allergy/AdvReac Type Severity Reaction Status Date / Time No Known Allergies Allergy Verified 08/20/21 02:55 Home Meds: Home Meds Famotidine [Pepcid AC] 20 mg PO BID 06/01/21 [History] LORazepam [Ativan] 0.5 mg PO BID PRN 06/01/21 [History] Levocetirizine Dihydrochloride [Xyzal] 5 mg PO DAILY 06/01/21 [History] Sertraline HCl [Zoloft] 100 mg PO DAILY 06/01/21 [History] Albuterol [Proventil HFA] 1 - 2 puff INH QID PRN 07/06/21 [History] Fluticasone Propionate [Flonase] 1 dose NASBOTH DAILY 07/06/21 [History] Past Medical History HEENT History: Reports: Allergic Rhinitis, Impaired Vision (wears glasses) Cardiovascular History: Reports: Hypertension Respiratory History: Reports: Asthma (from allergies- used inhaler last about 6 months ago) Gastrointestinal History: Reports: Irritable Bowel Syndrome Psychiatric History: Reports: Addiction (alcohol), Anxiety, Depression Hematologic History: Reports: Idiopathic Thrombocytopenia - Past Surgical History Female Surgical History: Reports: Tubal Ligation Musculoskeletal Surgical History: Reports: Other (See Below) (leg surgery) Social & Family History - Caffeine Use Caffeine Use: Reports: Coffee - Alcohol Use Alcohol Use History: Yes ED ROS GENERAL - Review of Systems Review Of Systems: Unable To Obtain Reason Not Obtained: AMS ED EXAM, BEHAVIORAL HEALTH - Physical Exam Exam: See Below Exam Limited By: Altered Mental Status General Appearance: WD/WN, No Apparent Distress, Lethargic Eye Exam: Bilateral Eye: EOMI, Other (Miosis) Ears: Normal External Exam Nose: Normal Inspection Throat/Mouth: Normal Inspection, Normal Lips, Normal Voice (when woken), No Airway Compromise Head: Atraumatic, Normocephalic Neck: Normal Inspection, Full Range of Motion Respiratory/Chest: No Respiratory Distress, Lungs Clear, Normal Breath Sounds, No Accessory Muscle Use Cardiovascular: Normal Peripheral Pulses, Regular Rate, Rhythm, No Edema, No Gallop, No JVD, No Murmur, No Rub GI/Abdominal: Normal Bowel Sounds, Soft, Non-Tender, No Organomegaly, No Distention, No Abnormal Bruit, No Mass Back Exam: Normal Inspection, Full Range of Motion, NT Extremities: Normal Inspection, Normal Range of Motion, No Pedal Edema, Normal Capillary Refill Neurological: Other (Moves all extremities spontaneously.) Skin Exam: Warm, Dry, Intact, Normal color, No rash #1 Interpretation EKG Date: 08/20/21 Time: 03:10 Rhythm: Other (Sinus bradycardia) Rate (Beats/Min): 54 Arverne: Normal P-Wave: Present (1st degree AVB) QRS: Normal ST-T: Normal QT: Prolonged (QTc 494 ms) Comparison: NA - No Prior EKG COURSE, BEHAVIORAL HEALTH COMP - Course Vital Signs: Last Vital Signs Temp 36.1 C 08/20/21 06:15 Pulse 82 08/20/21 06:15 Resp 17 08/20/21 06:15 BP 119/62 08/20/21 06:15 Pulse Ox 97 08/20/21 06:15 Orders, Labs, Meds: Active Orders 24 hr Category Date Time Status Accu Check [Blood Glucose Check, Bedside] [RC] ONETIME Care 08/20/21 03:06 Active DOPamine/Dextrose 5%-Water [DOPamine in D5W 400 MG/250 Med 08/20/21 05:30 Active ML] 400 mg in 250 ml IV TITRATE Ondansetron [Zofran] Med 08/20/21 07:03 Once 4 mg IVPUSH ONETIME ONE Sodium Chloride 0.9% [Normal Saline] 1,000 ml Med 08/20/21 06:45 Active IV ASDIRECTED Medication Orders Dopamine HCl/Dextrose (Dopamine In D5w 400 Mg/250 Ml) 400 mg in 250 mls @ 14.033 mls/hr IV TITRATE WATSON; Protocol Last Titration: 08/20/21 06:20 Dose: 3 mcg/kg/min, 8.42 mls/hr Documented by: Admin: 08/20/21 05:45 Dose: 5 mcg/kg/min, 14.033 mls/hr Documented by: SIERRA Sodium Chloride (Normal Saline) 1,000 mls @ 100 mls/hr IV ASDIRECTED WATSON Laboratory Tests 08/20/21 08/20/21 08/20/21 Range/Units 03:00 03:00 03:00 WBC 5.55 (3.98-10.04) K/mm3 RBC 3.49 L (3.98-5.22) M/mm3 Hgb 10.1 L D (11.2-15.7) gm/dl Hct 32.6 L (34.1-44.9) % MCV 93.4 (79.4-94.8) fl MCH 28.9 (25.6-32.2) pg MCHC 31.0 L (32.2-35.5) g/dl RDW Std Deviation 47.2 H (36.4-46.3) fL Plt Count 329 (182-369) K/mm3 MPV 7.8 L (9.4-12.3) fl Neutrophils % (Manual) 51 (40-60) % Band Neutrophils % 0 (0-10) % Lymphocytes % (Manual) 42 H (20-40) % Atypical Lymphs % 0 % Monocytes % (Manual) 4 (2-10) % Eosinophils % (Manual) 3 (0.7-5.8) % Basophils % (Manual) 0 L (0.1-1.2) Platelet Estimate Adequate RBC Morph Comment Normal Puncture Site ABG pH (7.35-7.45) ABG pCO2 (35.0-45.0) mmHg ABG pO2 (80.0-100.0) mmHg ABG HCO3 (22.0-26.0) meq/L ABG O2 Saturation (96.0-97.0) % ABG Base Excess (-2-2.0) A-a Gradient mmHg O2 Delivery Device Oxygen Flow Rate FiO2 (21.00-100.00) % Sodium 143 (136-145) mEq/L Potassium 3.2 L (3.5-5.1) mEq/L Chloride 109 H (98-107) mEq/L Carbon Dioxide 23 (21-32) mEq/L Anion Gap 14.2 (5-15) BUN 7 (7-18) mg/dL Creatinine 0.6 (0.55-1.02) mg/dL Est Cr Clr Drug Dosing 89.33 mL/min Estimated GFR (MDRD) > 60 (>60) mL/min BUN/Creatinine Ratio 11.7 L (14-18) Glucose 132 H (70-99) mg/dL POC Glucose (70-99) mg/dL Calcium 7.5 L (8.5-10.1) mg/dL Total Bilirubin 0.2 (0.2-1.0) mg/dL AST 11 L (15-37) U/L ALT 13 L (14-59) U/L Alkaline Phosphatase 60 (46-116) U/L Total Protein 6.6 (6.4-8.2) g/dl Albumin 2.9 L (3.4-5.0) g/dl Globulin 3.7 gm/dL Albumin/Globulin Ratio 0.8 L (1-2) TSH 3rd Generation 0.457 (0.358-3.74) uIU/mL Salicylates (2.8-20) mg/dL Urine Opiates Screen Negative (SQVPGC=111) Ur Buprenorphine Scrn Negative (CUTOFF=10) Ur Oxycodone Screen Negative (XGC3ZZ=074) Urine Methadone Screen Negative (RSRYJX=059) Ur Propoxyphene Screen Negative (NOFWJG=803) Acetaminophen 0 L (10-30) ug/mL Ur Barbiturates Screen Negative (AQITDZ=557) Ur Tricyclics Screen Negative (TQNXYX=479) Ur Phencyclidine Scrn Negative (CUTOFF=25) Ur Amphetamine Screen Negative (DTKHAY=579) U Methamphetamines Scrn Negative (VXSPUI=273) U Benzodiazepines Scrn Negative (GFZJTU=951) U Cocaine Metab Screen Negative (GORYLR=142) U Marijuana (THC) Screen Presumptive positive H (CUTOFF=50) Ethyl Alcohol 0.23 (0.00) gm% SARS-CoV-2 RNA (FREDRICK) (NEGATIVE) 08/20/21 08/20/21 08/20/21 Range/Units 03:00 03:14 03:29 WBC (3.98-10.04) K/mm3 RBC (3.98-5.22) M/mm3 Hgb (11.2-15.7) gm/dl Hct (34.1-44.9) % MCV (79.4-94.8) fl MCH (25.6-32.2) pg MCHC (32.2-35.5) g/dl RDW Std Deviation (36.4-46.3) fL Plt Count (182-369) K/mm3 MPV (9.4-12.3) fl Neutrophils % (Manual) (40-60) % Band Neutrophils % (0-10) % Lymphocytes % (Manual) (20-40) % Atypical Lymphs % % Monocytes % (Manual) (2-10) % Eosinophils % (Manual) (0.7-5.8) % Basophils % (Manual) (0.1-1.2) Platelet Estimate RBC Morph Comment Puncture Site ABG pH (7.35-7.45) ABG pCO2 (35.0-45.0) mmHg ABG pO2 (80.0-100.0) mmHg ABG HCO3 (22.0-26.0) meq/L ABG O2 Saturation (96.0-97.0) % ABG Base Excess (-2-2.0) A-a Gradient mmHg O2 Delivery Device Oxygen Flow Rate FiO2 (21.00-100.00) % Sodium (136-145) mEq/L Potassium (3.5-5.1) mEq/L Chloride (98-107) mEq/L Carbon Dioxide (21-32) mEq/L Anion Gap (5-15) BUN (7-18) mg/dL Creatinine (0.55-1.02) mg/dL Est Cr Clr Drug Dosing mL/min Estimated GFR (MDRD) (>60) mL/min BUN/Creatinine Ratio (14-18) Glucose (70-99) mg/dL POC Glucose 105 H (70-99) mg/dL Calcium (8.5-10.1) mg/dL Total Bilirubin (0.2-1.0) mg/dL AST (15-37) U/L ALT (14-59) U/L Alkaline Phosphatase (46-116) U/L Total Protein (6.4-8.2) g/dl Albumin (3.4-5.0) g/dl Globulin gm/dL Albumin/Globulin Ratio (1-2) TSH 3rd Generation (0.358-3.74) uIU/mL Salicylates 1.9 L (2.8-20) mg/dL Urine Opiates Screen (KZNQBT=383) Ur Buprenorphine Scrn (CUTOFF=10) Ur Oxycodone Screen (BWZ7KS=085) Urine Methadone Screen (ZEYRZI=733) Ur Propoxyphene Screen (HYUVPY=039) Acetaminophen (10-30) ug/mL Ur Barbiturates Screen (SSOCVW=708) Ur Tricyclics Screen (JCYYVX=042) Ur Phencyclidine Scrn (CUTOFF=25) Ur Amphetamine Screen (RBDOMQ=520) U Methamphetamines Scrn (INHWEG=530) U Benzodiazepines Scrn (TOSFVL=483) U Cocaine Metab Screen (YYXSYL=512) U Marijuana (THC) Screen (CUTOFF=50) Ethyl Alcohol (0.00) gm% SARS-CoV-2 RNA (FREDRICK) Negative (NEGATIVE) 08/20/21 Range/Units 03:34 WBC (3.98-10.04) K/mm3 RBC (3.98-5.22) M/mm3 Hgb (11.2-15.7) gm/dl Hct (34.1-44.9) % MCV (79.4-94.8) fl MCH (25.6-32.2) pg MCHC (32.2-35.5) g/dl RDW Std Deviation (36.4-46.3) fL Plt Count (182-369) K/mm3 MPV (9.4-12.3) fl Neutrophils % (Manual) (40-60) % Band Neutrophils % (0-10) % Lymphocytes % (Manual) (20-40) % Atypical Lymphs % % Monocytes % (Manual) (2-10) % Eosinophils % (Manual) (0.7-5.8) % Basophils % (Manual) (0.1-1.2) Platelet Estimate RBC Morph Comment Puncture Site Lt radial ABG pH 7.26 L (7.35-7.45) ABG pCO2 45.8 H (35.0-45.0) mmHg ABG pO2 70.0 L (80.0-100.0) mmHg ABG HCO3 19.6 L (22.0-26.0) meq/L ABG O2 Saturation 91.0 L (96.0-97.0) % ABG Base Excess -6.7 L (-2-2.0) A-a Gradient 22 mmHg O2 Delivery Device Room air Oxygen Flow Rate 0.0 FiO2 21.00 (21.00-100.00) % Sodium (136-145) mEq/L Potassium (3.5-5.1) mEq/L Chloride (98-107) mEq/L Carbon Dioxide (21-32) mEq/L Anion Gap (5-15) BUN (7-18) mg/dL Creatinine (0.55-1.02) mg/dL Est Cr Clr Drug Dosing mL/min Estimated GFR (MDRD) (>60) mL/min BUN/Creatinine Ratio (14-18) Glucose (70-99) mg/dL POC Glucose (70-99) mg/dL Calcium (8.5-10.1) mg/dL Total Bilirubin (0.2-1.0) mg/dL AST (15-37) U/L ALT (14-59) U/L Alkaline Phosphatase (46-116) U/L Total Protein (6.4-8.2) g/dl Albumin (3.4-5.0) g/dl Globulin gm/dL Albumin/Globulin Ratio (1-2) TSH 3rd Generation (0.358-3.74) uIU/mL Salicylates (2.8-20) mg/dL Urine Opiates Screen (YFUNRM=615) Ur Buprenorphine Scrn (CUTOFF=10) Ur Oxycodone Screen (JJW6ZY=690) Urine Methadone Screen (DZQSZS=479) Ur Propoxyphene Screen (BCYHRT=656) Acetaminophen (10-30) ug/mL Ur Barbiturates Screen (ZRAAQL=864) Ur Tricyclics Screen (SFLMNW=610) Ur Phencyclidine Scrn (CUTOFF=25) Ur Amphetamine Screen (TANQHQ=900) U Methamphetamines Scrn (WJHMUN=609) U Benzodiazepines Scrn (HXWPCJ=257) U Cocaine Metab Screen (NRUJIE=084) U Marijuana (THC) Screen (CUTOFF=50) Ethyl Alcohol (0.00) gm% SARS-CoV-2 RNA (FREDRICK) (NEGATIVE) Medications Generic Name Dose Route Start Last Admin Trade Name Freq PRN Reason Stop Dose Admin Dopamine HCl/Dextrose 400 mg in 250 mls @ 14.033 mls/hr 08/20/21 05:30 08/20/21 06:20 Dopamine In D5w 400 Mg/250 Ml IV 3 mcg/kg/min TITRATE WATSON 8.42 mls/hr Titration Protocol 5 MCG/KG/MIN Sodium Chloride 1,000 mls @ 100 mls/hr 08/20/21 06:45 Normal Saline IV ASDIRECTED WATSON Discontinued Medications Generic Name Dose Route Start Last Admin Trade Name Freq PRN Reason Stop Dose Admin Sodium Chloride 1,000 mls @ 999 mls/hr 08/20/21 02:59 08/20/21 03:24 Normal Saline IV 08/20/21 03:59 999 mls/hr ONETIME ONE Administration Naloxone HCl 7.5 mg 08/20/21 03:07 08/20/21 03:22 Naloxone 2 Mg/2 Ml Syringe IVPUSH 08/20/21 03:08 7.5 mg ONETIME STA Administration Naloxone HCl Confirm 08/20/21 03:18 08/20/21 03:25 Naloxone 2 Mg/2 Ml Syringe Administered 08/20/21 03:19 Not Given Dose 2 mg .ROUTE .STK-MED ONE Naloxone HCl Confirm 08/20/21 03:18 08/20/21 03:25 Naloxone 2 Mg/2 Ml Syringe Administered 08/20/21 03:19 Not Given Dose 4 mg .ROUTE .STK-MED ONE Medical Clearance: 08/20/21 03:09 Of the pills that were brought by EMS, 3 bottles are empty, including clonidine 0.1 mg, cetirizine 5 mg, and Escitalopram 10 mg. Given the patient's lethargy, bradycardia, hypotension, respiratory depression, and miosis, I am concerned that we are primarily dealing with a clonidine overdose, although it is also likely that she consumed alcohol. Given her occasionally sonorous breathing, I elected to place a 28 U[place] nasal trumpet in her right nostril, however, I was only able to get the trumpet in about 2 cm before she woke up, grabbed the trumpet, and removed it. She then fell back asleep again. Since then, the patient has been easy to arouse, although immediately falls back to sleep when left alone. I have ordered an Accu-Chek, numerous blood tests, an ABG, a swab for the SARS-CoV-2 virus, a urine drug screen, a portable chest x-ray, and an ECG. She will be given a liter bolus of IV fluid, and I have ordered naltrexone 0.1 mg/kg = 7.5 mg. If she remains hypotensive, our next step is to start a dopamine drip. 08/20/21 04:18 Portable chest radiograph reviewed. Poor inspiratory effort. The cardiac silh ouette is within normal limits. No pulmonary vascular congestion. No pleural effusions seen on this AP view. No focal infiltrate. No pneumothorax. There is an approximately 1 cm round opacity at the right hilum. Formal read per the Radiologist pending. The patient's CBC is remarkable for a H/H mildly depressed at 10.1/32.6, with remainder of her CBC being unremarkable. Her CMP is remarkable for mild hypokalemia of 3.2 and mild hyperglycemia of 132, with the remainder of her CMP being unremarkable. Her TSH is within normal limits at 0.457. Her salicylate level is within normal limits at 1.9. Her acetaminophen level is 0. Her EtOH level is elevated at 0.23. Her ABG demonstrates a primary respiratory acidosis with secondary combined metabolic acidosis and metabolic alkalosis. Her urine drug screen is positive for marijuana, only. Her swab for the SARS-CoV-2 virus is negative. After 2 L of IV fluid (she received 1 L per EMS en route to the ED) her BP is st ill 70/47. I have therefore asked Francheska SINCLAIR to move her to one of the trauma bay is so that I can place a central line and start a dopamine drip. 08/20/21 05:[address] a left subclavian central line. I was able to cannulate the vein and draw venous blood without difficulty, but was unable to pass a guidewire beyond 22 cm, repeatedly. I am not sure if there his an anatomic abnormality, sucha as subclavian vein stenosis, or just what the problem is. I have asked Dr. Guerrero to come to the ED to try. 08/20/21 05:17 Dr. Guerrero came very quickly and is attempting to place a central line now. 08/20/21 05:25 Dr. Guerrero was successful in getting a left subclavian central line. I have ordered a post-procedure portable chest x-ray. 08/20/21 06:06 Post-procedure portable chest radiograph reviewed. The cardiac silhouette is within normal limits. No pulmonary vascular congestion. No pleural effusions seen on this AP view. No focal infiltrate. No pneumothorax. A left subclavian central line with the tip at the junction of the superior vena cava and the right atrium noted. Formal read per the Radiologist pending. 08/20/21 06:19 On a dopamine drip 5 mcg/kg/min, the patient's BP is now up to 119/62 with a MAP of 79, HR 85 bpm, SpO2 97% on room air. I have asked Francheska SINCLAIR to decrease the dopamine drip to 3 mcg/kg/min. Unfortunately, there are no ICU beds available at this facility, and we are not anticipating getting any today. We will endeavor to find an ICU bed at an outside facility. 08/20/21 06:31 Case discussed with Abhijeet at [facility] at 06:24. The portable chest x-ray images were pushed to [facility] at 06:27. Case then discussed with Dr. uY, Graphic Art Designer at [facility], at 06:29. He accepted the patient for transfer to their facility. The patient will be transported by ground ambulance. 08/20/21 07:04 Notified by Francheska SINCLAIR that the patient is vomiting. I have ordered 4 mg of Zofran IVP. Departure - Departure Time of Disposition: 06:32 Disposition: DC/Tfer to Acute Hospital 02 Condition: Good Clinical Impression: Clonidine overdose, Alcohol intoxication, Suicide attempt - Discharge Information *PRESCRIPTION DRUG MONITORING PROGRAM REVIEWED*: Not Applicable *COPY OF PRESCRIPTION DRUG MONITORING REPORT IN PATIENT DANNY: Not Applicable Referrals: Ely Dale BRAKE OPERATOR [employer]Y DUTY [Nurse Practitioner] - Forms: ED Department Discharge Sepsis Event Note (ED) - Focused Exam Vital Signs: Vital Signs Temp Pulse Resp BP Pulse Ox 08/20/21 06:15 36.1 C 82 17 119/62 97 08/20/21 02:50 36.3 C 53 L 17 68/46 L 93 L - My Orders Last 24 Hours: My Active Orders 08/20/21 03:06 Accu Check [Blood Glucose Check, Bedside] [RC] ONETIME 08/20/21 05:30 DOPamine/Dextrose 5%-Water [DOPamine in D5W 400 MG/250 ML] 400 mg in 250 ml IV TITRATE 08/20/21 06:45 Sodium Chloride 0.9% [Normal Saline] 1,000 ml IV ASDIRECTED 08/20/21 07:03 Ondansetron [Zofran] 4 mg IVPUSH ONETIME ONE - Assessment/Plan Last 24 Hours: My Active Orders 08/20/21 03:06 Accu Check [Blood Glucose Check, Bedside] [RC] ONETIME 08/20/21 05:30 DOPamine/Dextrose 5%-Water [DOPamine in D5W 400 MG/250 ML] 400 mg in 250 ml IV TITRATE 08/20/21 06:45 Sodium Chloride 0.9% [Normal Saline] 1,000 ml IV ASDIRECTED 08/20/21 07:03 Ondansetron [Zofran] 4 mg IVPUSH ONETIME ONE
[2021-08-20] MEDS ORDERED: Naloxone 2 MG/2 ML Syringe ONE ×2 (03:18)
[2021-08-20 03:49] LABS: ACETAMINOPHEN 0 ug/mL (10-30)
[2021-08-20] MEDS ORDERED: DOPamine/Dextrose 5%-Water 400 MG/250 ML BAG IV SCH (05:30)
--- NOTE | 2021-08-20 06:19 | CR ---
Chest: Frontal view of the chest was obtained. Comparison: Prior chest x-ray performed earlier on the same day (3:22 AM). Left-sided subclavian line is seen. Tip lies near the junction of the right atrium and superior vena cava. No pneumothorax is seen. Heart size and mediastinum are within normal limits. Lungs are clear with no acute parenchymal change. No acute osseous abnormality is appreciated. Impression: 1. Left subclavian line with tip located at the junction of the right atrium and superior vena cava. 2. Nothing acute is otherwise seen. Diagnostic code #3
--- NOTE | 2021-08-20 06:31 | CR ---
Chest: Portable view of the chest was obtained. Comparison: No prior chest imaging is available. Heart size and mediastinum are within normal limits. Lungs are clear with no acute parenchymal change. Bony structure shows nothing acute. Impression: 1. Nothing acute is seen on portable chest x-ray. Diagnostic code #1
[2021-08-20] MEDS ORDERED: Sodium Chloride 0.9% 1,000 ML IV SCH (06:45)
[2021-08-20] MEDS ORDERED: Ondansetron 4 MG/2 ML SDV IVPUSH ONE (07:03)
[2021-08-20] MEDS ORDERED: Ondansetron 4 MG/2 ML SDV ONE (07:04)
--- NOTE | 2021-08-21 10:22 | PCM.PRNOTE ---
- Free Text/Narrative Note: Date: 08/20/2021 Procedure: insertion of left subclavian vein central line Surgeon: Jamaal Guerrero MD Indication: hypotension, need for dopamine infusion for treatment of intentional drug overdose Findings: Successful placement confirmed on x-ray Detailed Report: The patient had already been positioned and set up for line placement and there was evidence of multiple needle sticks at the left anterior chest. The left arm was pulled inferiorly by the nurse and the patient was placed in Trendelenburg. An intradermal wheal was made with 1% lidocaine for local anesthetic at site of planned line insertion. A large bore needle was inserted successfully into the left subclavian vein with good venous return. A guidewire was advanced without resistance through the needle and ectopic changes were noted on telemetry. The needle was withdrawn and a small stab incision made at the site of wire entry. A dilator was passed over the wire. This wwas withdrawn and a triple lumen CVC was advanced over the wire. The wire was withdrawn. All ports flushed and jose back without a problem. The central line was sutured in place with silk suture and a sterile dressing was applied. Chest x-ray to confirm proper placement was ordered. The patient tolerated the procedure well.
== END 2021-08-20 07:15 ==
LOC: JD.ED 02:40
DX: T46.5X2A Poisoning by other antihypertensive drugs, intentional self-harm, initial encounter (principal); I10 Essential (primary) hypertension; J45.909 Unspecified asthma, uncomplicated; Z79.899 Other long term (current) drug therapy; Z20.822 Contact with and (suspected) exposure to COVID-19
CPT/HCPCS: 31603; 36415; 36600; 71045; 80053; 80143; 80179; 80306; 80307; 82803; 82947; 84443; 85007; 85027; 87635; 93005; 96365; 96375; 99285; J1265; J2310; J2405; J7030; U0002